=== PATIENT | female | born 1995 | race Caucasian/White ===

== ENCOUNTER 2020-04-14 10:21 | Emergency (ER) | payer OTHER ==
[~2020-04-14] VITALS: Ht 167.6 cm; Wt 83.0 kg
[2020-04-14] MEDS ORDERED: NORFLEX100MG PO (12:35)
[2020-04-14] MEDS ORDERED: KETO10TA2 PO (12:35)
== END 2020-04-14 13:03 | disposition home or self-care (01) ==
LOC: ER 10:21
DX: S33.5XXA Sprain of ligaments of lumbar spine, initial encounter (principal); X50.0XXA Overexertion from strenuous movement or load, initial encounter; Y93.89 Activity, other specified; Y92.69 Other specified industrial and construction area as the place of occurrence of the external cause; Y99.8 Other external cause status

== ENCOUNTER → 2020-05-31 | Emergency (ER) | payer OTHER ==
[~2020-05-31] VITALS: Ht 167.6 cm; Wt 85.3 kg
[~2020-05-31] MED LIST: KETO10TA2 PO; NORFLEX100MG PO
== END | disposition home or self-care (01) ==
LOC: ER 17:21
DX: K29.60 Other gastritis without bleeding (principal)